=== PATIENT | male | born 1990 | race Asian ===

== ENCOUNTER 2016-10-01 11:36 | Emergency (ER) | payer MEDICAID ==
[~2016-10-01] VITALS: Ht 170.2 cm; Wt 60.0 kg
[2016-10-01 11:45] VITALS: BP 124/85
[2016-10-01] MEDS ORDERED: MORPHINE SULFATE 4 MG/ML CPJ (NOT FOR IM USE) IV STA (12:09)
[2016-10-01] MEDS ORDERED: ONDANSETRON HCL 4MG/2ML VIAL IV STA (12:09)
[2016-10-01] MEDS ORDERED: ASPIRIN 81MG TABLET PO ONE (12:15)
== END 2016-10-01 19:30 | disposition left against medical advice (07) ==
LOC: ER 12:33
DX: R07.9 Chest pain, unspecified (principal); F11.10 Opioid abuse, uncomplicated; F17.210 Nicotine dependence, cigarettes, uncomplicated
CPT/HCPCS: 93005; 99283; Z7610